=== PATIENT | female | born 1970 | race Caucasian/White ===

== ENCOUNTER 2016-06-03 21:07 | Emergency (ER) | payer OTHER ==
[2016-06-03] MEDS ORDERED: PREDNISONE 20 MG TAB PO ONE (21:24)
[2016-06-03] MEDS ORDERED: HYDROCODONE/APAP 7.5/325MG TABLET PO ONE (21:24)
[2016-06-03] MEDS ORDERED: AZITHROMYCIN 500 MG TABLET PO ONE (21:24)
[2016-06-03] MEDS ORDERED: IPRATROPIUM/ALBUTEROL (0.5MG/3MG) NEB INH ONE (21:24)
--- NOTE | 2016-06-03 21:24 | Emergency Department Record ---
History of Present Illness - General Chief Complaint: Cough Stated Complaint: COUGH/LUNGS HURT Time Seen by Provider: 06/03/16 21:16 Source: Patient, Family Mode of Arrival: Ambulatory Limitations: No limitations - History of Present Illness Initial Comments: 45 yo female presents with a cough, wheezing, hot and cold flashes since Friday. She has productive sputum at times. She did not get a Flu shot. She is not a smoker. No recent immobilization, No HRT, No history of blood clots. She has sinus drainage and sore throat as well. She was sick last month but it had resolved. She has coughed to the point of gagging and vomited a few times. She did see a red streak with the vomit. PCP is Gely Doty of [place]. She works in a daycare. She did not have a flu shot this year. MD Complaint: Cough, Fever, Sore throat Onset/Timin -: Week(s) Severity: Moderate Severity scale (1-10): 8 Quality: Aching Consistency: Constant - Related Data Previous Rx's Medication Instructions Recorded Azithromycin [Zithromax] 250 mg PO DAILY #4 tab 06/03/16 Benzonatate [Tessalon] 1 cap PO Q8H PRN #20 cap 06/03/16 Prednisone [Prednisone 20Mg] 20 mg PO BID #10 tab 06/03/16 Allergies Allergy/AdvReac Type Severity Reaction Status Date / Time hydrocodone bitartrate AdvReac NAUSEA AND Verified 06/22/15 20:24 [From [place]] VOMITING Travel Screening - Travel/Exposure Within Last 30 Days Have you traveled within the last 30 days?: No - Travel Symptoms Symptom Screening: None Review of Systems Constitutional: Denies: Chills, Malaise, Weakness Eyes: Denies: Eye discharge, Eye pain, Photophobia ENT: Reports: Congestion Respiratory: Reports: Cough Cardiovascular: Reports: Chest pain Endocrine: Denies: Fatigue Gastrointestinal: Denies: Abdominal pain, Diarrhea, Nausea, Vomiting Genitourinary: Denies: Dysuria, Urgency Musculoskeletal: Denies: Arthralgia, Back pain, Joint swelling, Myalgia, Neck pain Skin: Denies: Bruising, Change in color, Rash Neurological: Denies: Confusion, Headache Psychiatric: Denies: Anxiety Hematological/Lymphatic: Denies: Blood Clots, Easy bleeding, Easy bruising, Swollen glands Past Medical History - SOCIAL HISTORY Smoking Status: Never smoker - RESPIRATORY Hx Respiratory Disorders: No - CARDIOVASCULAR Hx Cardio Disorders: No - NEURO Hx Neuro Disorders: No - GI Hx GI Disorders: No - Hx Genitourinary Disorders: No - ENDOCRINE Hx Endocrine Disorders: No - MUSCULOSKELETAL Hx Musculoskeletal Disorders: Yes Comment:: pinched nerve see's specialist katerine zimmer. - PSYCH Hx Psych Problems: No - HEMATOLOGY/ONCOLOGY Hx Hematology/Oncology Disorders: No Family Medical History Any Significant Family History?: No Family Hx Comment (NOT TO BE USED IN PLACE OF ITEMS BELOW): denies Physical Exam - General General Appearance: Alert, Oriented x3, Cooperative, No acute distress, Other ( Calm respirations) Limitations: No limitations - Head Head exam: Normal inspection - Eye Eye exam: Normal appearance, PERRL. negative: Conjunctival injection, Scleral icterus - ENT ENT exam: Normal exam, Mucous membranes moist Ear exam: Normal external inspection Nasal Exam: Discharge. negative: Normal inspection Mouth exam: Normal external inspection Teeth exam: Normal inspection Throat exam: Normal inspection, Tonsillar erythema. negative: Tonsillomegaly, Tonsillar exudate, R peritonsillar mass, L peritonsillar mass - Neck Neck exam: Normal inspection, Full ROM. negative: Lymphadenopathy, Meningismus , Tenderness - Respiratory Respiratory exam: Decreased breath sounds, Rhonchi, Wheezes. negative: Normal lung sounds bilaterally, Accessory muscle use, Prolonged expiratory, Respiratory distress - Cardiovascular Cardiovascular Exam: Regular rate, Normal rhythm, Normal heart sounds - GI/Abdominal GI/Abdominal exam: Soft. negative: Tenderness - Rectal Rectal exam: Deferred - exam: Deferred - Extremities Extremities exam: Normal inspection, Full ROM. negative: Calf tenderness, Joint swelling, Pedal edema, Tenderness - Back Back exam: Reports: Normal inspection, Full ROM. Denies: Muscle spasm, Rash noted, Tenderness - Neurological Neurological exam: Alert, Normal gait, Oriented X3 - Psychiatric Psychiatric exam: Normal affect, Normal mood. negative: Agitated, Anxious - Skin Skin exam: Dry, Intact, Normal color, Warm Course Vital Signs 06/03/16 21:11 Temperature 99.8 F H Pulse Rate [ 101 H Pulse Ox Probe] Respiratory 24 Rate Blood Pressure 127/88 [Left Arm] Pulse Ox 96 - Reevaluation(s) Reevaluation #1: The patient was seen and examined A Duoneb was ordered for her wheezing and rhonchi Strep and Flu swabs obtained and sent to the lab CXR ordered 06/03/16 21:29 Reevaluation #2: The patient was much improved after Duoneb She has good air exchanged with nearly resolved wheezing She states she feels much improved She will be provided a Combivent inhaler given her good response 06/03/16 21:50 The CXR was reviewed. Waiting for the final radiology report The patient was provided and taught to use a Combivent inhaler. She will use this one puff every 4 hours 06/03/16 22:24 06/03/16 22:27 Reevaluation #3: CXR was negative for acute infiltrate She continues to feel much improved after the Duoneb We discussed the treatment plan at home and reasons to return to the ED 06/03/16 22:31 Disposition Disposition: Discharge Clinical Impression: Bronchitis Disposition: Home, Self-Care Condition: (1) Good Instructions: Bronchospasm (ED), Acute Bronchitis (ED) Additional Instructions: Return for a recheck in the next 1-2 days if not improving and immediately if worse Call your doctor tomorrow to be seen this week for a recheck You may use the Combivent 1 Puff every 4 hours as needed follow up as scheduled with your doctor Prescriptions: Prednisone [Prednisone 20Mg] 20 mg PO BID #10 tab Benzonatate [Tessalon] 1 cap PO Q8H PRN #20 cap PRN Reason: Cough Azithromycin [Zithromax] 250 mg PO DAILY #4 tab Forms: Patient Portal Access
[2016-06-03 21:36] LABS: STREP A SCREEN NEGATIVE (NEGATIVE)
[2016-06-03 21:42] LABS: INFLUENZA A NEGATIVE (NEGATIVE); INFLUENZA B NEGATIVE (NEGATIVE)
[2016-06-03] MEDS ORDERED: KETOROLAC 30 MG/ML VIAL IM ONE (21:47)
[2016-06-03] MEDS ORDERED: IPRATROPIUM/ALBUTEROL 4 GM INH INH ONE (22:34)
[2016-06-03] MEDS ORDERED: BENZONATATE 100 MG CAPSULE PO ONE (22:42)
--- NOTE | 2016-06-07 09:03 | RADIOLOGY REPORT ---
EXAM: CHEST, TWO VIEWS HISTORY: COUGH, FEVER AND CHILLS. TECHNIQUE: PA and lateral views of the chest were obtained. Comparison: None. FINDINGS: The heart size is normal. The lungs appear expanded with no acute infiltrate seen. No pleural effusion or pneumothorax evident. Minor spurring in the spine. IMPRESSION: MINOR SPURRING IN THE SPINE. NO ACUTE INFILTRATE IDENTIFIED. JOB NUMBER: [id number] MTDD
== END 2016-06-03 22:49 | disposition home or self-care (01) ==
LOC: ER 21:07
DX: J20.9 Acute bronchitis, unspecified (principal); J02.9 Acute pharyngitis, unspecified; R11.11 Vomiting without nausea
CPT/HCPCS: 99283; 96372; 99284; 87880; 87400; 71020; J1885; J7512